=== PATIENT | female | born 1995 | race Two or more races ===

== ENCOUNTER 2022-12-11 15:59 | Emergency (ER) | payer MEDICAID, OTHER ==
[~2022-12-11] VITALS: Ht 170.2 cm; Wt 118.1 kg
[2022-12-11] MEDS ORDERED: EPINEPHrine HCL 1 MG/1 ML AMP SC ONE (16:45)
[2022-12-11] MEDS ORDERED: methylPREDNISolone SOD SUCC 125 MG/2 ML VL IM ONE (16:45)
[2022-12-11 17:18] VITALS: BP 121/82
[2022-12-11] MEDS ORDERED: PRED20TA2 PO (17:27)
[2022-12-12] MEDS ORDERED: PRED20TA2 PO (11:45)
== END 2022-12-11 18:15 | disposition home or self-care (01) ==
LOC: ER 15:59
DX: T78.40XA Allergy, unspecified, initial encounter (principal); X58.XXXA Exposure to other specified factors, initial encounter
CPT/HCPCS: 96372; 99284; J0171; J2930